=== PATIENT | male | born 1930 | race Caucasian/White ===

== ENCOUNTER 2019-05-27 06:36 | Inpatient (IN) | payer MEDICARE ==
[~2019-05-27] VITALS: Ht 162.6 cm; Wt 55.8 kg
[2019-05-27 06:37] VITALS: BP 128/73
--- NOTE | 2019-05-27 06:39 | NUR ---
ED Nurse Note: pt brought in by RA [id number], pt CC constipation x 4 days. Pt is alert x4. Ambulatory. VSS. also C/O ABD pain 05/20. ABd non distended.
--- NOTE | 2019-05-27 07:18 | NUR ---
ED Nurse Note: Collected blood specimen then sent.
--- NOTE | 2019-05-27 07:20 | NUR ---
ED Nurse Note: report given to NEMESIO Valdez. Pt VSS.
--- NOTE | 2019-05-27 07:22 | Diagnostic Imaging Report ---
EXAM: XR Chest, 1 View CLINICAL HISTORY: CP TECHNIQUE: Frontal view of the chest. COMPARISON: No relevant prior studies available. FINDINGS: Lungs: Unremarkable. No consolidation. Pleural space: Unremarkable. No pneumothorax. Heart: Unremarkable. No cardiomegaly. Mediastinum: Unremarkable. Bones/joints: There are fractures of the right fifth through seventh ribs posteriorly which are likely subacute or chronic, as opposed to acute. Vasculature: The aorta is slightly tortuous. IMPRESSION: 1. No acute abnormality. Clear lungs. 2. Right rib fractures, likely subacute or chronic.
--- NOTE | 2019-05-27 07:29 | Emergency Room Report ---
History of Present Illness General Chief Complaint: General Complaint Source: Patient Present Illness HPI Patient presents with complaints of difficulty having a bowel movement general weakness denies any chest pain denies any vomiting Patient reports that he has had previous impaction Before requiring intervention Also has some lower abdominal discomfort Denies any fevers or chills denies any recent travel or trauma however patient does have some ecchymosis to the right lower eye Allergies: Coded Allergies: PENICILLINS (Verified Allergy, Mild, 05/27/19) Patient History Past Medical History: see triage record Reviewed Nursing Documentation: PMH: Agreed; PSxH: Agreed Nursing Documentation-PMH Past Medical History: No Stated History Review of Systems All Other Systems: negative except mentioned in HPI Physical Exam Vital Signs Date Time Temp Pulse Resp B/P (MAP) Pulse Ox O2 Delivery O2 Flow Rate FiO2 05/27/19 06:34 97.7 96 16 130/73 (92) 97 Room Air 05/27/19 06:37 98 Sp02 EP Interpretation: reviewed, normal General Appearance: cachetic Head: normocephalic, other - Ecchymosis right upper maxillary area Eyes: bilateral eye PERRL, bilateral eye EOMI ENT: dry mucus membranes Neck: supple Respiratory: lungs clear, no retraction, no accessory muscle use Cardiovascular #1: regular rate, rhythm Gastrointestinal: non tender, soft Musculoskeletal: normal inspection Neurologic: alert, responsive Skin: other - Ecchymosis as noted above Lymphatic: no adenopathy Medical Decision Making Diagnostic Impression: Primary Impression: Weakness Additional Impression: Fecal impaction ER Course Given the patient's history and presentation multiple differentials and consideration including but not limited to bowel obstruction Other traumatic injuries Electrolyte abnormality Cardiac cardiopulmonary pathology Patient's imaging does not reveal any obvious obstruction patient has significant amount of stool in the rectum/distal colon Given the findings a digital disimpaction was performed in the usual fashion stool is fairly soft we did disimpact some stool however significant amount still remains present and an enema was also provided Given the patient's age risk factors Given his findings he requires further inpatient care Labs Test 05/27/19 07:10 05/27/19 08:33 White Blood Count 12.7 K/UL (4.8-10.8) Red Blood Count 3.48 M/UL (4.70-6.10) Hemoglobin 11.7 G/DL (14.2-18.0) Hematocrit 35.8 % (42.0-52.0) Mean Corpuscular Volume 103 FL (80-99) Mean Corpuscular Hemoglobin 33.7 PG (27.0-31.0) Mean Corpuscular Hemoglobin Concent 32.8 G/DL (32.0-36.0) Red Cell Distribution Width 12.1 % (11.6-14.8) Platelet Count 280 K/UL (150-450) Mean Platelet Volume 5.7 FL (6.5-10.1) Neutrophils (%) (Auto) % (45.0-75.0) Lymphocytes (%) (Auto) % (20.0-45.0) Monocytes (%) (Auto) % (1.0-10.0) Eosinophils (%) (Auto) % (0.0-3.0) Basophils (%) (Auto) % (0.0-2.0) Differential Total Cells Counted 100 Neutrophils % (Manual) 89 % (45-75) Lymphocytes % (Manual) 6 % (20-45) Monocytes % (Manual) 5 % (1-10) Eosinophils % (Manual) 0 % (0-3) Basophils % (Manual) 0 % (0-2) Band Neutrophils 0 % (0-8) Platelet Estimate Adequate Platelet Morphology Normal Macrocytosis 1+ Sodium Level 143 MMOL/L (136-145) Potassium Level 4.4 MMOL/L (3.5-5.1) Chloride Level 108 MMOL/L (98-107) Carbon Dioxide Level 28 MMOL/L (21-32) Anion Gap 7 mmol/L (5-15) Blood Urea Nitrogen 38 mg/dL (7-18) Creatinine 1.4 MG/DL (0.55-1.30) Estimat Glomerular Filtration Rate mL/min (>60) Glucose Level 137 MG/DL (74-106) Lactic Acid Level 2.20 mmol/L (0.4-2.0) 2.20 mmol/L (0.66-2.22) Calcium Level 10.5 MG/DL (8.5-10.1) Total Bilirubin 0.6 MG/DL (0.2-1.0) Aspartate Amino Transf (AST/SGOT) 40 U/L (15-37) Alanine Aminotransferase (ALT/SGPT) 58 U/L (12-78) Alkaline Phosphatase 62 U/L (46-116) Total Creatine Kinase 226 U/L (26-308) Creatine Kinase MB 5.1 NG/ML (0.0-3.6) Creatine Kinase MB Relative Index 2.2 Troponin I 0.016 ng/mL (0.000-0.056) Total Protein 7.2 G/DL (6.4-8.2) Albumin 3.8 G/DL (3.4-5.0) Globulin 3.4 g/dL Albumin/Globulin Ratio 1.1 (1.0-2.7) EKG Diagnostic Results Rate: normal Rhythm: NSR ST Segments: other - Nonspecific ST changes Rhythm Strip Diag. Results EP Interpretation: yes Rate: 77 Rhythm: NSR, no PVC's, no ectopy Chest X-Ray Diagnostic Results Chest X-Ray Diagnostic Results : Chest X-Ray Ordered: Yes # of Views/Limited/Complete: 1 View Indication: Chest Pain EP Interpretation: Yes Interpretation: no consolidation, no effusion, no pneumothorax Impression: Other - Question subacute right-sided rib fractures Electronically Signed by: Elijah Stephens DO CT/MRI/US Diagnostic Results CT/MRI/US Diagnostic Results : Impression CT abdomen pelvisIMPRESSION: 1. Extensive stool throughout the colon and rectum, suggesting constipation and/or impaction. 2. Left inguinal hernia partially containing sigmoid colon without evidence of obstruction or strangulation. 3. Chronic healed fracture deformities along the costovertebral junctions of the right 10th, 11th, and 12th ribs and the right L1 transverse process. 4. Dextroscoliotic curvature centered at L2. Multilevel degenerative disc space loss and endplate osteophytes throughout the lumbar spine. 5. 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 6. Coronary artery calcifications. 7. Annular calcifications in the aortic and mitral valves. CT headIMPRESSION: 1. No acute intracranial findings. 2. Periventricular white matter hypodensities, likely related to chronic small vessel disease changes. 3. Generalized cerebral parenchymal volume loss, likely age-related. Last Vital Signs Date Time Temp Pulse Resp B/P (MAP) Pulse Ox O2 Delivery O2 Flow Rate FiO2 05/27/19 06:37 97.8 78 16 128/73 98 Room Air 05/27/19 06:37 98 Status: improved Disposition: ADMITTED INPATIENT Condition: Elijah Zamora DO May 27, 2019 07:29
--- NOTE | 2019-05-27 07:30 | NUR ---
ED Nurse Note: Pt asking for pain medication. Dr Stephens notified with no new orders.
[2019-05-27 07:39] LABS: HEMATOCRIT 35.8 % (42.0-52.0); HEMOGLOBIN 11.7 G/DL (14.2-18.0); MEAN CORPUSCULAR VOLUME 103 FL (80-99); PLATELET COUNT 280 K/UL (150-450); RED BLOOD COUNT 3.48 M/UL (4.70-6.10); RED CELL DISTRIBUTION WIDTH 12.1 % (11.6-14.8); WHITE BLOOD COUNT 12.7 K/UL (4.8-10.8)
[2019-05-27 07:45] LABS: ANION GAP 7 mmol/L (5-15); BLOOD UREA NITROGEN 38 mg/dL (7-18); CALCIUM 10.5 MG/DL (8.5-10.1); CARBON DIOXIDE 28 MMOL/L (21-32); CHLORIDE 108 MMOL/L (98-107); CREATININE 1.4 MG/DL (0.55-1.30); POTASSIUM 4.4 MMOL/L (3.5-5.1); SODIUM 143 MMOL/L (136-145)
[2019-05-27 08:00] LABS: ALANINE AMINOTRANSFERASE 58 U/L (12-78); ALBUMIN 3.8 G/DL (3.4-5.0); ALBUMIN/GLOBULIN RATIO 1.1 (1.0-2.7); ALKALINE PHOSPHATASE 62 U/L (46-116); ASPARTATE AMINO TRANSFERASE 40 U/L (15-37); BILIRUBIN,TOTAL 0.6 MG/DL (0.2-1.0); CKMB 5.1 NG/ML (0.0-3.6); CREATINE KINASE 226 U/L (26-308)
--- NOTE | 2019-05-27 08:21 | Diagnostic Imaging Report ---
EXAM: CT Head Without Intravenous Contrast CLINICAL HISTORY: TRAUMA TECHNIQUE: Axial computed tomography images of the head/brain without intravenous contrast. CTDI is 70.38 mGy and DLP is 1457 mGy-cm. One or more of the following dose reduction techniques were used: automated exposure control, adjustment of the mA and/or kV according to patient size, use of iterative reconstruction technique. Coronal reformatted images were created and reviewed. COMPARISON: No relevant prior studies available. FINDINGS: Brain: Generalized parenchymal volume loss, likely age-related. Periventricular white matter hypodensities. No evidence of acute intracranial hemorrhage. No mass effect or midline shift. Ventricles: Unremarkable. No ventriculomegaly. Bones/joints: Unremarkable. No acute fracture. Soft tissues: Postoperative changes from presumed prior bilateral cataract surgery. Vasculature: Atherosclerotic calcifications within the cavernous portions of bilateral ICAs. Sinuses: Unremarkable as visualized. No acute sinusitis. Mastoid air cells: Unremarkable as visualized. No mastoid effusion. Tubes, lines and devices: Radiodense devices in bilateral external auditory canals, likely hearing aids. IMPRESSION: 1. No acute intracranial findings. 2. Periventricular white matter hypodensities, likely related to chronic small vessel disease changes. 3. Generalized cerebral parenchymal volume loss, likely age-related.
--- NOTE | 2019-05-27 08:30 | Diagnostic Imaging Report ---
EXAM: CT Abdomen and Pelvis Without Intravenous Contrast CLINICAL HISTORY: PAIN TECHNIQUE: Axial computed tomography images of the abdomen and pelvis without intravenous contrast. Sagittal and coronal reformatted images were created and reviewed. CTDI is 12.33 mGy and DLP is 610 mGy-cm. One or more of the following dose reduction techniques were used: automated exposure control, adjustment of the mA and/or kV according to patient size, use of iterative reconstruction technique. COMPARISON: No relevant prior studies available. FINDINGS: Lung bases: Mild dependent atelectasis in bilateral lung bases. Heart: Coronary artery calcifications. Annular calcifications in the aortic and mitral valves. ABDOMEN: Liver: Unremarkable. Gallbladder and bile ducts: Unremarkable. No calcified stones. No ductal dilation. Pancreas: Unremarkable. No ductal dilation. Spleen: Unremarkable. No splenomegaly. Adrenals: Unremarkable. No mass. Kidneys and ureters: Prominence of the renal pelvis bilaterally, likely related to extrarenal pelvis. The kidneys otherwise appear unremarkable. No radiodense renal or ureteral stones. No perinephric stranding. Stomach and bowel: Extensive stool throughout the colon and rectum, suggesting constipation and/or impaction. Left inguinal hernia partially containing sigmoid colon without evidence of obstruction or strangulation. Remainder of the colon appears unremarkable. No abnormally distended loops of small bowel. GE junction and stomach appear unremarkable. No mucosal thickening. PELVIS: Appendix: Appendix is not definitively identified however no inflammatory changes are seen in the right lower quadrant. Bladder: Moderately distended urinary bladder. No focal wall thickening or luminal stones. No perivesical stranding. Reproductive: Incidental note of prostate gland calcifications. The prostate gland and seminal vesicles otherwise appear unremarkable. ABDOMEN and PELVIS: Intraperitoneal space: Unremarkable. No free air. No significant fluid collection. Bones/joints: Chronic healed fracture deformities along the costovertebral junctions of the right 10th, 11th, and 12th ribs and the right L1 transverse process. Dextroscoliotic curvature centered at L2. Multilevel degenerative disc space loss and endplate osteophytes throughout the lumbar spine. 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 Moderate degenerative narrowing and marginal osteophytes at the right hip joint, and mild degenerative narrowing and marginal osteophytes at the left hip joint. No dislocation. Soft tissues: See above regarding a left inguinal hernia partially containing sigmoid colon. Vasculature: Atherosclerosis throughout the abdominal aorta and its proximal branches. No abdominal aortic aneurysm. Lymph nodes: Unremarkable. No enlarged lymph nodes. IMPRESSION: 1. Extensive stool throughout the colon and rectum, suggesting constipation and/or impaction. 2. Left inguinal hernia partially containing sigmoid colon without evidence of obstruction or strangulation. 3. Chronic healed fracture deformities along the costovertebral junctions of the right 10th, 11th, and 12th ribs and the right L1 transverse process. 4. Dextroscoliotic curvature centered at L2. Multilevel degenerative disc space loss and endplate osteophytes throughout the lumbar spine. 5. 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 6. Coronary artery calcifications. 7. Annular calcifications in the aortic and mitral valves.
[2019-05-27 08:35] VITALS: BP 128/96
--- NOTE | 2019-05-27 08:50 | NUR ---
ED Nurse Note: Dr Kat jenkins for RN not to collect urine sample at this time.
--- NOTE | 2019-05-27 09:00 | NUR ---
ED Nurse Note: Dr Stephens at the bed side for removing of fecal impaction.
--- NOTE | 2019-05-27 09:11 | NUR ---
ED Nurse Note: Report given to Iqra HERR of Med Surg unit.
[2019-05-27 09:14] VITALS: BP 128/96
[2019-05-27] MEDS ORDERED: Fleet's Enema 133ml RECTAL ONE ×2 (09:15→09:30)
--- NOTE | 2019-05-27 10:04 | NUR ---
NURSE NOTES: Patient transferred from ER, via gurney. patient stated he doesn't want to be admitted to the floor he wants go home. He already told ER nurse he does not want to be transferred to the [facility]. He wants to sign out AMA form and leave.
--- NOTE | 2019-05-27 10:06 | NUR ---
NURSE NOTES: Called Dr. Edmar Boyd regarding patient wants to signing out AMA. left message, awaiting call back.
--- NOTE | 2019-05-27 10:15 | NUR ---
NURSE NOTES: MD called back, and aware about patient wants to leave.
--- NOTE | 2019-05-27 10:20 | NUR ---
NURSE NOTES: Patient signed AMA form and belonging list. IV and ID band removed. Patient is having diarrhea, asked for diaper. Diaper given. Escorted down stair by Reuben/EDMUND.
--- NOTE | 2019-05-27 10:35 | NUR ---
NURSE NOTES: Called his Radha to notify her, that the patient left the hospital.
--- NOTE | 2019-05-29 11:54 | Discharge Summary ---
Discharge Summary Discharge Summary _ DATE OF ADMISSION: 05/27/2019 DATE OF DISCHARGE: 05/27/2019 Patient left AGAINST MEDICAL ADVICE REASON FOR ADMISSION: 88 years old male presented with generalized weakness and difficulty having bowel movement. He denied chest pain and shortness of breath. He denied any vomiting. Patient reported prior history of fecal impaction, requiring intervention. Patient also reported some abdominal discomfort. No fever, no chills. No recent travel trauma. Upon evaluation vital signs were stable. Laboratory work-up revealed mild leukocytosis WBC 12.7, hemoglobin 11.7, hematocrit 35.8. Platelet count 280. Stable electrolytes. BUN 38, creatinine 1.4. Glucose 137. Lactic acid 2.2. AST 40 ALT 58. Troponin- 0.016, EKG revealed sinus rhythm , no acute ischemic changes. Chest x-ray revealed no acute abnormality. Clear lungs. Right rib fractures, likely subacute or chronic: -fifth through seventh ribs posteriorly. CT of the abdomen and pelvis demonstrated 1. Extensive stool throughout the colon and rectum, suggesting constipation and/or impaction. 2. Left inguinal hernia, partially containing sigmoid colon without evidence of obstruction or strangulation. 3. Chronic healed fracture deformities along the costovertebral junctions of the right 10th, 11th, and 12th ribs and the right L1 transverse process. 4. Dextro-scoliotic curvature centered at L2. Multilevel degenerative disc space loss and endplate osteophytes throughout the lumbar spine. 5. 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 6. Coronary artery calcifications. 7. Annular calcifications in the aortic and mitral valves. CT of the head revealed no acute intracranial pathology. Chronic small vessel disease changes noted. Given patient findings , digital disimpaction was performed in the usual fashion. Stool was fairly soft, however significant amount still remained present . Fleet enema was also provided x2. Patient subsequently admitted to medical surgical floor for further management with diagnosis of fecal impaction and generalized weakness. HOSPITAL COURSE: Patient admitted to medical surgical floor. Patient already felt better after disimpaction and enema, provided in ER. In half an hour he decided to leave AGAINST MEDICAL ADVICE . The risks and consequences of signing AGAINST MEDICAL ADVICE were discussed with patient in detail. Patient verbalized understanding, nevertheless signed AMA form and left. FINAL DIAGNOSES: Fecal impaction Generalized weakness I have been assigned to dictate discharge summary for this account. I was not involved in the patient's management. Sena Scruggs NP May 29, 2019 11:54
--- NOTE | 2019-05-30 11:13 | Cardiology Report ---
APPROVED REPORT EKG Measurement Heart [id number] Sinus rhythm with premature atrial complexes Prolonged QT Abnormal ECG
== END 2019-05-27 11:05 | disposition left against medical advice (07) | DRG 390 ==
LOC: EDBD 06:36 → EMR 08:01 → EDBEDREQ 08:48 → 4E 08:58
DX: K56.41 Fecal impaction (principal); R53.1 Weakness; K40.90 Unilateral inguinal hernia, without obstruction or gangrene, not specified as recurrent; S22.41XD Multiple fractures of ribs, right side, subsequent encounter for fracture with routine healing; X58.XXXD Exposure to other specified factors, subsequent encounter; M47.896 Other spondylosis, lumbar region; I25.10 Atherosclerotic heart disease of native coronary artery without angina pectoris; I25.84 Coronary atherosclerosis due to calcified coronary lesion
CPT/HCPCS: 36415; 70450; 71045; 74176; 80053; 82550; 82553; 83605; 84484; 85007; 85025; 87040; 93005; 96360; 99285